=== PATIENT | female | born 1930 | race Caucasian/White ===

== ENCOUNTER 2017-04-24 12:07 | Outpatient (CLI) | payer MEDICARE, OTHER ==
[2017-04-24] VITALS (19 sets, daily range): BP systolic 146–210; BP diastolic 77–115
== END 2017-04-24 23:59 | disposition home or self-care (01) ==
LOC: CARD DIAG 12:07
PROVIDERS: ATTEND Nurse Practitioner Family
DX: R55 Syncope and collapse (principal)
CPT/HCPCS: 93660